=== PATIENT | male | born 1935 | race African-American/Black ===

== ENCOUNTER 2016-06-12 07:42 | Emergency (ER) | payer MEDICARE, OTHER ==
[~2016-06-12] VITALS: Ht 165.1 cm; Wt 69.9 kg
[~2016-06-12 07:42] MED LIST: CARDIZEM60 MG ORAL; CLARITIN10 M2 ORAL; DEBROX15 M1 OT; FLONASE1 SPRAYS NASAL; GENTAK5 ML LEFT EYE; KENALOG 0.1% CR15 GM APPLIC; LISINOPRIL10 MG ORAL; NAPHCON-A EYE D15 ML BOTH EYES; NASONEX17 GM NASAL; OCUFLOX5 ML BOTH EYES; VISINE ALLERGY15 ML OP
--- NOTE | 2016-06-12 08:09 | Emergency Room Report ---
History of Present Illness General Chief Complaint: Upper Respiratory Illness Source: Patient Present Illness HPI Patient presents with complaints of right ear pain Nasal congestion Rhinorrhea And now developing of increased cough Denies any chest pain or shortness of breath denies any back or flank pain Denies any fevers or chills denies any neck pain or photophobia Patient denies any recent travel Allergies: Coded Allergies: PENICILLINS (Verified Allergy, Mild, Itching, 06/20/13) Patient History Past Medical History: see triage record Pertinent Family History: none Reviewed Nursing Documentation: PMH: Agreed, PSxH: Agreed Nursing Documentation-PMH Hx Hypertension: Yes Review of Systems All Other Systems: negative except mentioned in HPI Physical Exam Vital Signs Date Time Temp Pulse Resp B/P Pulse Ox O2 Delivery O2 Flow Rate FiO2 06/12/16 07:49 98.1 82 18 138/82 96 Room Air Sp02 EP Interpretation: reviewed, normal General Appearance: well appearing, no apparent distress Head: normocephalic, atraumatic Eyes: bilateral eye EOMI, bilateral eye PERRL ENT: hearing grossly normal, TMs + canals normal, uvula midline, pharyngeal erythema, other - clear rhinorrhea Neck: full range of motion, supple, no meningismus, no bony tend Respiratory: lungs clear, normal breath sounds, no rhonchi, no respiratory distress, no retraction, no accessory muscle use Cardiovascular #1: normal peripheral pulses, regular rate, rhythm, no edema, no gallop, no JVD, no murmur Gastrointestinal: normal bowel sounds, non tender, soft, no mass, no organomegaly, non-distended, no guarding, no hernia, no pulsatile mass, no rebound Genitourinary: no CVA tenderness Musculoskeletal: normal inspection Neurologic: oriented x3, responsive, nutritionists III-XII nml as tested, motor strength/ tone normal, sensory intact Psychiatric: mood/affect normal Skin: normal color, no rash, warm/dry, palpation normal Lymphatic: normal inspection, no adenopathy Medical Decision Making Diagnostic Impression: Primary Impression: Atypical pneumonia Additional Impression: Allergic rhinitis ER Course Given the patient's age history and presentation Diagnosed with atypical pneumonia Patient will be placed on antibiotics at this time saturations are appropriate No signs of any acute respiratory distress And appropriate for initial conservative outpatient trial Last Vital Signs Date Time Temp Pulse Resp B/P Pulse Ox O2 Delivery O2 Flow Rate FiO2 06/12/16 07:49 98.1 82 18 138/82 96 Room Air Status: improved Disposition: HOME, SELF-CARE Condition: Improved Additional Instructions: Patient is provided with the discharge instructions notified to follow up with primary doctor in the next 2-3 days otherwise return to the er with any worsening symptoms. Please note that this report is being documented using [employer] technology. This can lead to erroneous entry secondary to incorrect interpretation by the dictating instrument. LINSEY RODRIGUEZ D.O. Jun 12, 2016 08:09
[2016-06-12] MEDS ORDERED: ZYRTEC10 MG ORAL (08:13)
[2016-06-12] MEDS ORDERED: AZITHROMYCIN250 MG ORAL (08:13)
[2016-06-12 08:47] VITALS: BP 138/80
== END 2016-06-12 08:49 | disposition home or self-care (01) ==
LOC: EMR 07:55
DX: J18.9 Pneumonia, unspecified organism (principal); Z88.0 Allergy status to penicillin; J30.9 Allergic rhinitis, unspecified
CPT/HCPCS: 99284

== ENCOUNTER 2016-08-13 07:32 | Emergency (ER) | payer MEDICARE ==
[~2016-08-13] VITALS: Ht 165.1 cm; Wt 70.3 kg
[~2016-08-13 07:32] MED LIST changes: +AZITHROMYCIN250 MG ORAL; +ZYRTEC10 MG ORAL
[2016-08-13 08:02] VITALS: BP 142/76
[2016-08-13] MEDS ORDERED: ACETAMINOPHEN500 M5 PO (08:09)
[2016-08-13] MEDS ORDERED: PEPCID20 MG ORAL (08:09)
[2016-08-13] MEDS ORDERED: ROBAXIN-750750 MG PO (08:09)
[2016-08-13] MEDS ORDERED: Methocarbamol 750mg tab ORAL ONE (08:15)
[2016-08-13 08:36] VITALS: BP 140/73
--- NOTE | 2016-08-13 10:14 | Emergency Room Report ---
History of Present Illness General Chief Complaint: Pain Source: Patient Present Illness HPI [id number] with 2 complaints: bloating and "loud burping" since eating "stuff I shouldnt have recently." Denies abd pain, vomiting, diarrhea. Also c/o 2/10 left buttock pain. Worse with leaning forward, sitting down. Had "Sciatica" years ago but resolved with accupuncture. Not taking any meds. Denies urinary complaints. Denies chest pain, SOB. Allergies: Coded Allergies: PENICILLINS (Verified Allergy, Mild, Itching, 06/20/13) Patient History Past Medical History: HTN Past Surgical History: none Pertinent Family History: none Social History: Denies: alcohol use, drug use, smoking Immunizations: UTD Reviewed Nursing Documentation: PMH: Agreed, PSxH: Agreed Nursing Documentation-PMH Hx Hypertension: Yes Review of Systems All Other Systems: negative except mentioned in HPI Physical Exam Vital Signs Date Time Temp Pulse Resp B/P Pulse Ox O2 Delivery O2 Flow Rate FiO2 08/13/16 07:50 98.1 72 15 142/76 99 Room Air Sp02 EP Interpretation: reviewed, normal General Appearance: normal inspection, well appearing, no apparent distress, alert, GCS 15, non-toxic, other - Reading book in chair Head: normocephalic, atraumatic Eyes: bilateral eye EOMI, bilateral eye PERRL ENT: normal ENT inspection, hearing grossly normal, normal voice Neck: normal inspection, full range of motion, supple, no bony tend Respiratory: normal inspection, lungs clear, normal breath sounds, no respiratory distress, no retraction, no wheezing Cardiovascular #1: regular rate, rhythm, no edema Gastrointestinal: normal inspection, normal bowel sounds, non tender, soft, no guarding, no hernia Genitourinary: no CVA tenderness Musculoskeletal: normal inspection, back normal, normal range of motion, Umair' s Sign negative, other - Mild ttp to left lower lateral buttock Neurologic: normal inspection, alert, oriented x3, responsive, value analyst III-XII nml as tested, SLR negative, speech normal Psychiatric: normal inspection, judgement/insight normal, mood/affect normal Skin: normal inspection, normal color, no rash Lymphatic: normal inspection Medical Decision Making Diagnostic Impression: Primary Impression: Sciatica, left side Additional Impression: Gastritis Qualified Codes: K29.00 - Acute gastritis without bleeding ER Course Lumbar strain: low suspicion for cord compression given well appearance, buttock ttp, no focal neuro deficits, absence of midline ttp/masses and pain worse with movement with known exacerbating activity. Rx Tylenol, Robaxin Gastritis: d/t dietary indiscretion. VSS. Afebrile. No focal abd ttp. Low suspicion for ACS, dissection, AAA. Rx Pepcid PMD followup as needed Last Vital Signs Date Time Temp Pulse Resp B/P Pulse Ox O2 Delivery O2 Flow Rate FiO2 08/13/16 08:38 98.1 08/13/16 08:36 78 15 140/73 99 Room Air Status: improved Disposition: HOME, SELF-CARE Condition: Improved Scripts Methocarbamol* (ROBAXIN-750*) 750 Mg Tablet 750 MG PO TID for back pain for 7 Days, #30 TAB 0 Refills Prov: JULIO MCCORMICK M.D. 08/13/16 Acetaminophen (Acetaminophen) 500 Mg Tablet 500 MG PO TID for 7 Days, #30 TAB Prov: JULIO MCCORMICK M.D. 08/13/16 Famotidine (PEPCID) 20 Mg Tablet 20 MG ORAL BID for 7 Days, #14 TAB 0 Refills Prov: JULIO MCCORMICK M.D. 08/13/16 Referrals: NON PHYSICIAN (PCP) Patient Instructions: Lumbosacral Strain, Gastritis, Adult, [id number], Sciatica, [id number] Additional Instructions: Gastritis/acid reflux - take pepcid twice daily for 1 week - Avoid spicey food, chocolate - Spalding food only until symptoms resolve Sciatica - Take Tylenol with Robaxin up to 3x a day for sciatica, lower back pain - Stretch as often as possible - Followup with primary care doctor in 2-3 days JULIO CMCORMICK M.D. Aug 13, 2016 10:14
== END 2016-08-13 08:39 | disposition home or self-care (01) ==
LOC: EMR 08:13
DX: M54.32 Sciatica, left side (principal); K29.70 Gastritis, unspecified, without bleeding; I10 Essential (primary) hypertension; Z88.0 Allergy status to penicillin
CPT/HCPCS: 99284

== ENCOUNTER 2016-09-18 12:44 | Emergency (ER) | payer MEDICARE ==
[~2016-09-18] VITALS: Ht 165.1 cm; Wt 69.9 kg
[~2016-09-18 12:44] MED LIST changes: +ACETAMINOPHEN500 M5 PO; +PEPCID20 MG ORAL; +ROBAXIN-750750 MG PO
[2016-09-18 13:32] VITALS: BP 109/65
--- NOTE | 2016-09-18 13:35 | Emergency Room Report ---
History of Present Illness General Chief Complaint: Pain Present Illness HPI 80-year-old male presents to the emergency department complaining of 8/10 in severity pain in the right lower jaw that radiates to the neck and right ear. Patient reports tenderness to one of the molars on the right side of his lower jaw. Patient denies fevers, chills, recent dental procedures. Patient states he hasn't seen his dentist in over one year. Patient denies trauma or fall denies tinnitus, discharge from the ear, or q - tip use. Denies CP, Palpitations , LOC, AMS, dizziness, Changes in Vision, Sensation, paresthesias, or a sudden severe headache. Allergies: Coded Allergies: PENICILLINS (Verified Allergy, Mild, Itching, 06/20/13) Patient History Past Medical History: see triage record Past Surgical History: none Pertinent Family History: none Reviewed Nursing Documentation: PMH: Agreed, PSxH: Agreed Nursing Documentation-PMH Hx Hypertension: Yes Physical Exam Vital Signs Date Time Temp Pulse Resp B/P Pulse Ox O2 Delivery O2 Flow Rate FiO2 09/18/16 13:07 98.1 65 20 105/63 99 Room Air Medical Decision Making PA Attestation Dr. villanueva is my supervising Physician whom patient management has been discussed with. Diagnostic Impression: Primary Impression: Tooth pulpitis ER Course 80-year-old male presents to the emergency department complaining of 8/10 in severity pain in the right lower jaw that radiates to the neck and right ear. Patient reports tenderness to one of the molars on the right side of his lower jaw. Patient denies fevers, chills, recent dental procedures. Patient states he hasn't seen his dentist in over one year. Patient denies trauma or fall denies tinnitus, discharge from the ear, or q - tip use. Denies CP, Palpitations , LOC, AMS, dizziness, Changes in Vision, Sensation, paresthesias, or a sudden severe headache. Ddx considered but are not limited to:tooth abscess, tooth avulsion, pulpitis CLIPPER OPERATOR, Ludwigs angina, cellulitis Vital signs: are WNL, pt. is afebrile H&PE are most consistent with: pulpitis of right lower 1st molar, no fluctuance in the gum, erythema noted, and root exposure noted. ear canal and TM are WNL ORDERS: None required at this time as the diagnosis is clinical ED INTERVENTIONS: none required at this time. -Pt. is given list of free/reduced cost dental clinics for follow up. d/w pt. that he will be treated with pain medication and abx , and to return promptly to ED with new or worsening symptoms. DISCHARGE: At this time pt. is stable for d/c to home. Will provide printed patient care instructions, and any necessary prescriptions. Care plan and follow up instructions have been discussed with the patient prior to discharge. Last Vital Signs Date Time Temp Pulse Resp B/P Pulse Ox O2 Delivery O2 Flow Rate FiO2 09/18/16 13:32 98.3 62 18 109/65 99 Room Air Disposition: HOME, SELF-CARE Condition: Stable Scripts Acetaminophen* (TYLENOL EXTRA STRENGTH*) 500 Mg Tablet 500 MG ORAL Q6H, #20 TAB 0 Refills Prov: Mary Harper 09/18/16 Clindamycin Hcl (CLINDAMYCIN HCL) 300 Mg Capsule 300 MG ORAL FOUR TIMES A DAY for 7 Days, #28 CAP Prov: Mary Harper 09/18/16 Patient Instructions: Dental Abscess, [id number] Additional Instructions: Take medications as directed. Follow up with a Dentist in 3-5 days, even if your symptoms have resolved. * * --Please review list of Dental clinics, if you do not already have a dentist. Return sooner to ED if new symptoms occur, or current symptoms become worse. - Please note that this Emergency Department Report was dictated using [facility] Hospital[facility] funeral director technology software, occasionally this can lead to erroneous entry secondary to interpretation by the dictation equipment. Mary Harper Sep 18, 2016 13:35
[2016-09-18] MEDS ORDERED: CLINDAMYCIN HC300 MG ORAL (13:38)
[2016-09-18] MEDS ORDERED: TYLENOL EXTRA500 MG ORAL (13:38)
[2016-09-18 13:50] VITALS: BP 109/65
== END 2016-09-18 13:51 | disposition home or self-care (01) ==
LOC: EMR 13:20
DX: K04.01 Reversible pulpitis (principal); I10 Essential (primary) hypertension; Z88.0 Allergy status to penicillin
CPT/HCPCS: 99284

== ENCOUNTER 2016-09-20 07:46 | Emergency (ER) | payer MEDICARE ==
[~2016-09-20] VITALS: Ht 165.1 cm; Wt 69.9 kg
[~2016-09-20 07:46] MED LIST changes: +CLINDAMYCIN HC300 MG ORAL; +TYLENOL EXTRA500 MG ORAL
--- NOTE | 2016-09-20 08:14 | Emergency Room Report ---
History of Present Illness General Chief Complaint: Wound Recheck/Suture Removal Source: Patient, Medical Record Present Illness HPI This patient presents for an antibiotic change. The patient was seen several days ago here for dental pain. He was found to have some gingivitis around one of his teeth. He plans on seeing a dentist. He was put on clindamycin and states that the clindamycin is bothering his stomach. He states he also has a dry mouth. He states that he also is having difficulty taking an antibiotic 4 times a day. He states that this prescription is also too expensive. He would like it changed. He denies pain. He denies facial swelling. He denies sore throat. He denies fever or chills. He states that he does plan on seeing a dentist however he has difficulty with the cost. Allergies: Coded Allergies: PENICILLINS (Verified Allergy, Mild, Itching, 06/20/13) Patient History Past Medical History: see triage record, HTN Social History: Denies: alcohol use, drug use, smoking Reviewed Nursing Documentation: PMH: Agreed, PSxH: Agreed Nursing Documentation-PMH Hx Hypertension: Yes Review of Systems All Other Systems: negative except mentioned in HPI Physical Exam Vital Signs Date Time Temp Pulse Resp B/P Pulse Ox O2 Delivery O2 Flow Rate FiO2 09/20/16 07:48 98.2 68 18 149/73 98 Room Air Sp02 EP Interpretation: reviewed, normal General Appearance: no apparent distress, alert, GCS 15, non-toxic Head: normocephalic, atraumatic Eyes: bilateral eye PERRL, bilateral eye normal inspection ENT: hearing grossly normal, normal pharynx, no angioedema, normal voice, other - Poor dentition. Mild gingival swelling around tooth 5. Teeth non- tender. No facial or cheek swelling. Neck: full range of motion, supple/symm/no masses Respiratory: no respiratory distress, no retraction, no accessory muscle use, speaking full sentences Cardiovascular #1: no edema Rectal: deferred Musculoskeletal: back normal, gait/station normal, normal range of motion Neurologic: alert, oriented x3, responsive, motor strength/tone normal, sensory intact, speech normal Psychiatric: judgement/insight normal, memory normal, mood/affect normal, no suicidal/homicidal ideation Skin: normal color, no rash, warm/dry, well hydrated Medical Decision Making Diagnostic Impression: Primary Impression: Dental caries Additional Impression: Gingivitis ER Course This patient presents for her change in his antibiotic prescription. He would like to have a less often prescription and one that is easier on his stomach. There is no obvious odontogenic abscess or facial abscess. Overall, the patient appears to have dental caries and a mild gingivitis. I will then give the patient a 5 day course of Augmentin. This was also instructed to followup with a dentist. He indicated understanding. No emergency medical condition was identified. The patient's given return precautions and followup instructions. Last Vital Signs Date Time Temp Pulse Resp B/P Pulse Ox O2 Delivery O2 Flow Rate FiO2 09/20/16 07:48 98.2 68 18 149/73 98 Room Air Disposition: HOME, SELF-CARE Condition: Stable IRINA LEAL D.O. Sep 20, 2016 08:14
[2016-09-20] MEDS ORDERED: CLEOCIN150 MG ORAL (08:36)
[2016-09-20 09:21] VITALS: BP 149/73
== END 2016-09-20 08:45 | disposition home or self-care (01) ==
LOC: EMR 08:21
DX: K02.9 Dental caries, unspecified (principal); K05.10 Chronic gingivitis, plaque induced; I10 Essential (primary) hypertension
CPT/HCPCS: 99283